=== PATIENT | female | born 1950 ===

== ENCOUNTER 2021-09-26 12:15 | Inpatient (IN) | payer OTHER ==
[~2021-09-26] VITALS: Ht 167.6 cm; Wt 68.5 kg
[~2021-09-26 12:15] MED LIST: COZAAR25 MG PO; HORIZANT300 MG PO; HUMALOG100 UNIT/2; LANTUS SOL100 UNIT/1; LIPITOR40 MG PO; METFORMIN HCL1000 M2 PO; PLETAL
[2021-09-28] MEDS ORDERED: ALENDRONATE SOD70 MG (08:39)
[2021-09-28] MEDS ORDERED: AMMONIUM LACTA385 GM (08:39)
[2021-09-28] MEDS ORDERED: GABAPENTIN300 M2 (08:40)
[2021-09-28] MEDS ORDERED: VITAMIN D3250 MCG (08:40)
[2021-09-28] MEDS ORDERED: CILOSTAZOL50 MG (08:40)
[2021-09-28] MEDS ORDERED: LOSARTAN POTASS50 MG (08:40)
== END 2021-09-30 16:44 | disposition home or self-care (01) | DRG 740 ==
LOC: OB/GYN 09-28 05:15 → O/R 09-28 05:15 → SURG 09-28 11:15 → OB/GYN 09-28 11:22 → SURG 09-28 12:15 → OB/GYN 09-30 16:44
PROVIDERS: ADMIT Specialist; ATTEND Specialist
PROC: 0DNU4ZZ Release Omentum, Percutaneous Endoscopic Approach (ICD-10-PCS; 2021-09-28)
PROC: 0DNW4ZZ Release Peritoneum, Percutaneous Endoscopic Approach (ICD-10-PCS; 2021-09-28)
PROC: 07BC4ZZ Excision of Pelvis Lymphatic, Percutaneous Endoscopic Approach (ICD-10-PCS; 2021-09-28)
PROC: 0UT2FZZ Resection of Bilateral Ovaries, Via Natural or Artificial Opening With Percutaneous Endoscopic Assistance (ICD-10-PCS; 2021-09-28)
PROC: 0UT7FZZ Resection of Bilateral Fallopian Tubes, Via Natural or Artificial Opening With Percutaneous Endoscopic Assistance (ICD-10-PCS; 2021-09-28)
PROC: 0UT9FZZ Resection of Uterus, Via Natural or Artificial Opening With Percutaneous Endoscopic Assistance (ICD-10-PCS; principal; 2021-09-28 11:15)
PROC: 30233N1 Transfusion of Nonautologous Red Blood Cells into Peripheral Vein, Percutaneous Approach (ICD-10-PCS; 2021-09-29)
DX: C54.1 Malignant neoplasm of endometrium (principal); D62 Acute posthemorrhagic anemia; N73.6 Female pelvic peritoneal adhesions (postinfective); Z20.822 Contact with and (suspected) exposure to COVID-19